=== PATIENT | male | born 1975 | race Caucasian/White ===

== ENCOUNTER 2019-05-30 21:14 | Emergency (ER) | payer OTHER ==
[2019-05-30] MEDS ORDERED: KETOROLAC 30 MG/ML INJ ONE (22:41)
[2019-05-30] MEDS ORDERED: LIDOCAINE VISCOUS 2% SOLN 15 ML UDC ONE (22:42)
--- NOTE | 2019-05-30 22:58 | EDPHYS ---
Physician Documentation [facility] Name: Albino Frost Age: 43 yrs Sex: Male : 1975 Arrival Date: 05/30/2019 Time: 21:33 Bed 26 Private MD: ED Physician Da Isabel HPI: 05/31 01:23 This 43 yrs old Male presents to ER via Ambulatory with complaints of snw Toothache. 01:23 The patient presents with pain, swelling. The problem is located in the lower left snw third molar (#17) and lower left second molar (#18). Onset: The symptoms/episode began/occurred suddenly. Duration: The symptoms are continuous. Modifying factors: The symptoms are alleviated by nothing. Associated signs and symptoms: The patient has no apparent associated signs or symptoms. Severity of symptoms: At their worst the symptoms were moderate. It is unknown whether or not the patient has had similar symptoms in the past. It is unknown whether or not the patient has recently seen a physician. Historical: - Allergies: 05/30 21:42 No Known Allergies; mg2 - Home Meds: 21:42 None [Active]; mg2 - PMHx: 21:42 None; mg2 - PSHx: 21:42 None; mg2 - Immunization history:: Flu vaccine is not up to date. - Coronavirus screen:: The patient has NOT traveled to [place] in the past 14 days. Proceed with normal triage process as indicated. - Social history:: Smoking status: Patient denies any tobacco usage or history of. Smoking status: Patient denies any tobacco usage or history of. Patient uses alcohol, but reports only rare drinking. Patient/guardian denies using street drugs, IV drugs. - Ebola Screening: : No symptoms or risks identified at this time. ROS: 05/31 01:21 Constitutional: Negative for fever, chills, and weight loss, Eyes: Negative for injury, snw pain, and discharge, left eye reddened Neck: Negative for injury, pain, and swelling, Cardiovascular: Negative for chest pain, palpitations, and edema, Respiratory: Negative for shortness of breath, cough, wheezing, and pleuritic chest pain, Abdomen/GI: Negative for abdominal pain, nausea, vomiting, diarrhea, and constipation, Back: Negative for injury and pain, : Negative for injury, bleeding, discharge, and swelling, MS/Extremity: Negative for injury and deformity, Skin: Negative for injury, rash, and discoloration, Neuro: Negative for headache, weakness, numbness, tingling, and seizure, Psych: Negative for depression, anxiety, suicide ideation, homicidal ideation, and hallucinations. Constitutional: Negative for fever, chills, and weight loss. ENT: Positive for dental pain. Exam: 01:20 Constitutional: This is a well developed, well nourished patient who is awake, alert, snw and in no acute distress. Head/Face: Normocephalic, atraumatic. Eyes: Pupils equal round and reactive to light, extra-ocular motions intact. Lids and lashes normal. Conjunctiva and sclera are non-icteric but left is injected. Cornea within normal limits. Periorbital areas with no swelling, redness, or edema. Neck: Trachea midline, no thyromegaly or masses palpated, and no cervical lymphadenopathy. Supple, full range of motion without nuchal rigidity, or vertebral point tenderness. No Meningismus. Chest/axilla: Normal chest wall appearance and motion. Nontender with no deformity. No lesions are appreciated. Cardiovascular: Regular rate and rhythm with a normal S1 and S2. No gallops, murmurs, or rubs. Normal PMI, no JVD. No pulse deficits. Respiratory: Lungs have equal breath sounds bilaterally, clear to auscultation and percussion. No rales, rhonchi or wheezes noted. No increased work of breathing, no retractions or nasal flaring. Abdomen/GI: Soft, non-tender, with normal bowel sounds. No distension or tympany. No guarding or rebound. No evidence of tenderness throughout. Back: No spinal tenderness. No costovertebral tenderness. Full range of motion. Skin: Warm, dry with normal turgor. Normal color with no rashes, no lesions, and no evidence of cellulitis. MS/ Extremity: Pulses equal, no cyanosis. Neurovascular intact. Full, normal range of motion. Neuro: Awake and alert, GCS 15, oriented to person, place, time, and situation. Cranial nerves II-XII grossly intact. Motor strength 5/5 in all extremities. Sensory grossly intact. Cerebellar exam normal. Normal gait. Psych: Awake, alert, with orientation to person, place and time. Behavior, mood, and affect are within normal limits. 01:20 ENT: Ear canal(s): are normal, TM's: are normal, Nose: is normal, Mouth: is normal, Posterior pharynx: is normal, Dental exam: dental caries, that is moderate, specifically in the lower left third molar (#17) and lower left second molar (#18). Vital Signs: 05/30 21:41 BP 147 / 110; Pulse 88; Resp 18; Temp 98.3; Pulse Ox 100% on R/A; Weight 127.01 kg; mg2 Height 6 ft. 2 in. (187.96 cm); Pain 7/10; 22:50 BP 145 / 90; Pulse 80; Resp 18; Temp 98; Pulse Ox 100% on R/A; mg2 21:41 Body Mass Index 35.95 (127.01 kg, 187.96 cm) mg2 MDM: 22:15 Patient medically screened. snw 22:34 Data reviewed: vital signs, nurses notes. Data interpreted: Pulse oximetry: on room air snw is 100 %. Interpretation: normal. Counseling: I had a detailed discussion with the patient and/or guardian regarding: the historical points, exam findings, and any diagnostic results supporting the discharge/admit diagnosis, the presence of at least one elevated blood pressure reading (>120/80) during this emergency department visit, the need for outpatient follow up, to return to the emergency department if symptoms worsen or persist or if there are any questions or concerns that arise at home. Special discussion: I have referred the patient to see his PCP for further evaluation of high blood pressure. Based on the history and exam findings, there is no indication for further emergent testing or inpatient evaluation. I discussed with the patient/guardian the need to see a dentist for further evaluation of the symptoms. I discussed with the patient/guardian the need to see the primary care provider for further evaluation of the symptoms. Administered Medications: 22:35 Drug: Clindamycin 300 mg Route: PO; mg2 22:59 Follow up: Response: No adverse reaction; Medication administered at discharge. mg2 22:59 Follow up: Response: No adverse reaction; Medication administered at discharge. mg2 22:35 Drug: TORadol 30 mg Route: IM; Site: right gluteus; mg2 22:59 Follow up: Response: No adverse reaction; Medication administered at discharge. mg2 22:35 Drug: Viscous Lidocaine Liquid (4 %) 10 ml Route: Mucous Membrane; mg2 Disposition: 23:25 Co-signature as Attending Physician, Da Isabel MD I agree with the assessment and kdr plan of care. Disposition: 05/30/19 22:30 Discharged to Home. Impression: Dental caries, unspecified, Conjunctivitis. - Condition is Stable. - Discharge Instructions: Dental Caries, Adult, Dental Pain, Bacterial Conjunctivitis, Hypertension, Diet and Dental Disease, Form - Blood Pressure Record Sheet, Preventive Dental Care, Adult. - Prescriptions for Clindamycin HCl 300 mg Oral Capsule - take 1 capsule by ORAL route every 8 hours for 10 days; 30 capsule. Tylenol- Codeine #3 300-30 mg Oral Tablet - take 2 tablets by ORAL route every 6 hours As needed; 16 tablet. Vigamox 0.5 % Ophthalmic Drops - instill 1 drop by OPHTHALMIC route every 8 hours for 7 days; 5 milliliter. - Medication Reconciliation Form, Thank You Letter, Antibiotic Education, Prescription Opioid Use form. - Follow up: Emergency Department; When: As needed; Reason: Worsening of condition. Follow up: Private Physician; When: 2 - 3 days; Reason: Recheck today's complaints, Continuance of care, Re-evaluation by your physician. Signatures: Da Isabel MD MD [facility] Kathy Hay FNP-[employer] TIMBER MANAGEMENT ASSISTANT-Wilton Champagne RN RN mg2 Corrections: (The following items were deleted from the chart) 23:03 22:30 05/30/2019 22:30 Discharged to Home. Impression: Dental caries, unspecified; mg2 Conjunctivitis. Condition is Stable. Forms are Medication Reconciliation Form, Thank You Letter, Antibiotic Education, Prescription Opioid Use. Follow up: Emergency Department; When: As needed; Reason: Worsening of condition. Follow up: Private Physician; When: 2 - 3 days; Reason: Recheck today's complaints, Continuance of care, Re-evaluation by your physician. snw 05/31 01:23 01:20 Constitutional: This is a well developed, well nourished patient who is awake, snw alert, and in no acute distress. Head/Face: Normocephalic, atraumatic. Eyes: Pupils equal round and reactive to light, extra-ocular motions intact. Lids and lashes normal. Conjunctiva and sclera are non-icteric and not injected. Cornea within normal limits. Periorbital areas with no swelling, redness, or edema. Neck: Trachea midline, no thyromegaly or masses palpated, and no cervical lymphadenopathy. Supple, full range of motion without nuchal rigidity, or vertebral point tenderness. No Meningismus. Chest/axilla: Normal chest wall appearance and motion. Nontender with no deformity. No lesions are appreciated. Cardiovascular: Regular rate and rhythm with a normal S1 and S2. No gallops, murmurs, or rubs. Normal PMI, no JVD. No pulse deficits. Respiratory: Lungs have equal breath sounds bilaterally, clear to auscultation and percussion. No rales, rhonchi or wheezes noted. No increased work of breathing, no retractions or nasal flaring. Abdomen/GI: Soft, non-tender, with normal bowel sounds. No distension or tympany. No guarding or rebound. No evidence of tenderness throughout. Back: No spinal tenderness. No costovertebral tenderness. Full range of motion. Skin: Warm, dry with normal turgor. Normal color with no rashes, no lesions, and no evidence of cellulitis. MS/ Extremity: Pulses equal, no cyanosis. Neurovascular intact. Full, normal range of motion. Neuro: Awake and alert, GCS 15, oriented to person, place, time, and situation. Cranial nerves II-XII grossly intact. Motor strength 5/5 in all extremities. Sensory grossly intact. Cerebellar exam normal. Normal gait. Psych: Awake, alert, with orientation to person, place and time. Behavior, mood, and affect are within normal limits. snw
--- NOTE | 2019-05-30 22:58 | ER ---
Nurse's Notes [facility] Name: Albino Frost Age: 43 yrs Sex: Male : 1975 Arrival Date: 05/30/2019 Time: 21:33 Bed 26 Private MD: Diagnosis: Dental caries, unspecified;Conjunctivitis Presentation: 05/30 21:39 Presenting complaint: Patient states: i have toothache for a week now. i took 1 dose of mg2 cephalexin at home this morning. Transition of care: patient was not received from another setting of care. Onset of symptoms was May 2019. Risk Assessment: Do you want to hurt yourself or someone else? Patient reports no desire to harm self or others. Initial Sepsis Screen: Does the patient meet any 2 criteria? No. Patient's initial sepsis screen is negative. Does the patient have a suspected source of infection? No. Patient's initial sepsis screen is negative. Care prior to arrival: None. 21:39 Method Of Arrival: Ambulatory mg2 21:39 Acuity: QUINN 4 mg2 Triage Assessment: 22:30 General: Appears in no apparent distress. comfortable. mg2 Historical: - Allergies: 21:42 No Known Allergies; mg2 - Home Meds: 21:42 None [Active]; mg2 - PMHx: 21:42 None; mg2 - PSHx: 21:42 None; mg2 - Immunization history:: Flu vaccine is not up to date. - Coronavirus screen:: The patient has NOT traveled to [place] in the past 14 days. Proceed with normal triage process as indicated. - Social history:: Smoking status: Patient denies any tobacco usage or history of. Smoking status: Patient denies any tobacco usage or history of. Patient uses alcohol, but reports only rare drinking. Patient/guardian denies using street drugs, IV drugs. - Ebola Screening: : No symptoms or risks identified at this time. Screenin:42 Abuse screen: Denies threats or abuse. Denies injuries from another. Nutritional mg2 screening: No deficits noted. Tuberculosis screening: No symptoms or risk factors identified. Fall Risk None identified. Assessment: 22:30 General: Appears in no apparent distress. comfortable, Behavior is calm, cooperative. mg2 Pain: Complains of pain in left lower molar Pain does not radiate. Pain currently is 5 out of 10 on a pain scale. Neuro: Level of Consciousness is awake, alert, obeys commands, Oriented to person, place, time, situation. Vital Signs: 21:41 BP 147 / 110; Pulse 88; Resp 18; Temp 98.3; Pulse Ox 100% on R/A; Weight 127.01 kg; mg2 Height 6 ft. 2 in. (187.96 cm); Pain 7/10; 22:50 BP 145 / 90; Pulse 80; Resp 18; Temp 98; Pulse Ox 100% on R/A; mg2 21:41 Body Mass Index 35.95 (127.01 kg, 187.96 cm) mg2 ED Course: 21:33 Patient arrived in ED. es 21:39 Wilton Jaquez, RN is Primary Nurse. mg2 21:41 Triage completed. mg2 21:41 Arm band placed on. mg2 22:02 Kathy Hay FNP-C is PHCP. snw 22:02 Da Isabel MD is Attending Physician. snw 22:30 Patient has correct armband on for positive identification. mg2 22:30 No provider procedures requiring assistance completed. Patient did not have IV access mg2 during this emergency room visit. Administered Medications: 22:35 Drug: Clindamycin 300 mg Route: PO; mg2 22:59 Follow up: Response: No adverse reaction; Medication administered at discharge. mg2 22:59 Follow up: Response: No adverse reaction; Medication administered at discharge. mg2 22:35 Drug: TORadol 30 mg Route: IM; Site: right gluteus; mg2 22:59 Follow up: Response: No adverse reaction; Medication administered at discharge. mg2 22:35 Drug: Viscous Lidocaine Liquid (4 %) 10 ml Route: Mucous Membrane; mg2 Outcome: 22:30 Discharge ordered by . snw 23:00 Discharged to home ambulatory. mg2 23:00 Condition: good 23:00 Discharge instructions given to patient, Instructed on discharge instructions, follow up and referral plans. medication usage, Demonstrated understanding of instructions, follow-up care, medications, Prescriptions given X 3. 23:03 Patient left the ED. mg2 Signatures: Kathy Hay FNP-C DIESEL MECHANIC APPRENTICE-Csnw Sruthi Lora Michele, RN RN mg2 Corrections: (The following items were deleted from the chart) 21:41 21:39 Acuity: QUINN 5 mg2 mg2
[2019-05-30 23:38] VITALS: O2SAT 100
[2019-05-31 00:27] VITALS: BP 145/90; TEMP 98
== END 2019-05-30 23:03 | disposition home or self-care (01) ==
LOC: ER 21:14
DX: K02.9 Dental caries, unspecified (principal); H10.9 Unspecified conjunctivitis
CPT/HCPCS: 96372; 99283